=== PATIENT | female | born 1950 | race Caucasian/White ===

== ENCOUNTER → 2024-05-30 13:07 | Outpatient (REF) | payer OTHER, SELFPAY | LOC: HWWDC 13:07 | PROVIDERS: ATTENDING PHYSICIAN Nurse Practitioner Primary Care | DX: Z12.31 Encounter for screening mammogram for malignant neoplasm of breast (principal) | CPT/HCPCS: 77063; 77067 ==

== ENCOUNTER → 2024-10-03 08:07 | Outpatient (REF) | payer OTHER, SELFPAY | LOC: HWRAD 08:07 | PROVIDERS: ATTENDING PHYSICIAN Nurse Practitioner Primary Care | DX: M54.16 Radiculopathy, lumbar region (principal); M25.551 Pain in right hip | CPT/HCPCS: 72110; 73502 ==

== ENCOUNTER → 2024-11-23 07:37 | Outpatient (REF) | payer OTHER, SELFPAY | LOC: PAVMRI 07:37 | PROVIDERS: ATTENDING PHYSICIAN Nurse Practitioner Primary Care | DX: M51.362 Other intervertebral disc degeneration, lumbar region with discogenic back pain and lower extremity pain (principal); M54.16 Radiculopathy, lumbar region; Z98.890 Other specified postprocedural states; R61 Generalized hyperhidrosis | CPT/HCPCS: 72158; A9575 ==

== ENCOUNTER → 2025-05-31 06:36 | Outpatient (REF) | payer OTHER, SELFPAY | LOC: HWWDC 06:36 | PROVIDERS: ATTENDING PHYSICIAN Nurse Practitioner Primary Care | DX: Z12.31 Encounter for screening mammogram for malignant neoplasm of breast (principal) | CPT/HCPCS: 77063; 77067 ==